=== PATIENT | female | born 2000 | race Caucasian/White ===

== ENCOUNTER 2022-03-23 23:00 | Inpatient (IN) ==
--- NOTE | 2022-03-23 23:13 | History & Physical Report ---
Date of Service March 23, 2022 Assessment & Plan (1) Prior miscarriage with , antepartum: Plan: Patient presented for evaluation of a labor she had her membranes stripped in the office by the provider in the office and states she was rodolfo every 3 minutes they were not overly intense and there was no bleeding but she came in to be checked her cervix is 1 cm and 50% at this time which is the same as it was in the office per documentation at this stage we will observe and monitor and recheck her in 2 hours History of Present Illness Primary Care Provider: Marlo Lund DO Allergies Allergy/AdvReac Type Severity Reaction Status Date / Time No Known Allergies Allergy Verified 03/23/22 23:17 Home Medications Medication Instructions Recorded Confirmed Type prenat.vits,teagan,eke-obtf-weevq 1 tab PO DAILY 08/13/21 03/23/22 History Patient History Medical History karen Varicella vaccination Family History Grandmother (Paternal) Breast cancer great Denies family history of Ovarian cancer Colorectal cancer Social History Smoking Status: Never smoker Tobacco Type: Cigarettes Second Hand Exposure: No; Hx Alcohol Use: No Hx Substance Use: No Preferred Language: Albanian Communication Ability: Effective Upholsterer Limousine And Hearse Required: No Beliefs That Will Affect Care: None marital status: Single Current Living Situation: Family and Significant Other Current Living Situation Comment: significant other; 2.5 year old daughter current occupational status: employed current occupation: [employer] Other Information That Helps Us Care for You: No Feels Safe at Home: Yes Safety Concerns: Feels Safe At This Time Assistive Devices: Glasses Supervising Physician Co-Signing Physician Notes Resident Physician Supervision Note: I interviewed and examined the patient. Discussed with Dr. Up and agree with findings and plan as documented in the note. Any exceptions or clarifications are listed here: [None] Documented By: Aida Clemente MD, FACOG Coding Level of Care Code None Diagnoses Prior miscarriage with , antepartum O09.299
[2022-03-24] MEDS ORDERED: OXYTOCIN 30 UNITS/500 ML BAG IV PRN (01:12)
[2022-03-24] MEDS ORDERED: LIDOCAINE 1% LOCAL 20 ML VIAL INFIL PRN (01:12)
[2022-03-24 01:40] LABS: Hematocrit (blood only) 29.6 % (34.1-44.9); Hemoglobin 9.3 g/dl (12.0-16.0); Mean Corpuscular Hemoglobin 23.8 pg (25.0-34.0); Mean Corpuscular Hgb Conc 31.4 g/dL (32.0-36.0); Mean Corpuscular Volume 75.9 fL (80.0-100.0); Mean Platelet Volume 10.5 fL (9.4-12.3); Platelet Count 299 K/uL (130-400); RDW Coefficient of Variation 14.8 % (11.5-14.5); RDW Standard Deviation 40.1 fL (36.4-46.3); White Blood Count 17.33 K/ul (4.8-10.8)
[2022-03-24] MEDS ORDERED: SODIUM CHLORIDE 0.9% INJ 10 ML VIAL ONE (02:08)
[2022-03-24] MEDS ORDERED: fentaNYL citrate 100 MCG/2 ML VIAL ONE (02:08)
[2022-03-24] MEDS ORDERED: ePHEDrine sulfate 50 MG/ML AMP ONE (02:08)
[2022-03-24] MEDS ORDERED: BUPIVACAINE 0.25% 30 ML VIAL ONE (02:09)
[2022-03-24] MEDS ORDERED: fentaNYL 2MCG/ML ROPIVACAINE 1.25MG/ML 100 ML BAG EPI ONE (02:09)
[2022-03-24] MEDS ORDERED: LIDOCAINE 2%/EPINEPHRINE 1:200,000 20 ML SDV ONE (02:09)
[2022-03-24] MEDS: LACTATED RINGER'S 1,000 ML IV PRN ×3 (02:10→09:55)
[2022-03-24] MEDS ORDERED: fentaNYL 2MCG/ML ROPIVACAINE 1.25MG/ML 100 ML BAG EPI PRN (02:41)
[2022-03-24] MEDS ORDERED: NALOXONE HCL 1 MG in SODIUM CHLORIDE 0.9% 1000ML 1,000 ML IV PRN (02:41)
[2022-03-24] MEDS ORDERED: NALBUPHINE HCL INJ 10 MG/ML AMP IV PRN (02:41)
[2022-03-24] MEDS ORDERED: NALOXONE HCL 0.4 MG/1 ML VIAL/CARP IV PRN (02:41)
[2022-03-24] MEDS ORDERED: diphenhydrAMINE 50 MG/ML VIAL IV PRN (02:41)
[2022-03-24] MEDS ORDERED: ONDANSETRON INJ 2 MG/ML 2 ML VIAL IV PRN (02:41)
[2022-03-24] MEDS ORDERED: ePHEDrine sulfate 50 MG/ML AMP IV PRN (02:41)
--- NOTE | 2022-03-24 02:43 | Anesthesiology Consultation ---
Date of Service March 24, 2022 Assessment & Plan Chart Review Chart Review: Patient NOT seen in Pre Admission Testing and Acceptable Risk for Labor Epidural Consults Requested none ASA ASA2 Proposed Anesthesia Anesthesia Type: Labor Epidural and CSE Risk / Benefits Reviewed With: PT / POA / Parent / Guardian, Accepts Plan and Informed Consent Obtained History Height/Weight Height: 5 ft 7 in Weight: 91.626 kg Allergies Allergy/AdvReac Type Severity Reaction Status Date / Time No Known Allergies Allergy Verified 03/23/22 23:17 Medications Home Medications Medication Instructions Recorded Confirmed Last Taken prenat.vits,teagan,zmr-pecp-kjiri 1 tab PO DAILY 08/13/21 03/23/22 03/22/22 21:00 Active Medications Generic Name Dose Route Start Last Admin Trade Name Freq PRN Reason Stop Dose Admin Lactated Ringer's 1,000 mls @ 125 mls/hr 03/24/22 01:12 03/24/22 02:10 Lr IV 03/26/22 01:11 999 mls/hr .Q8H PRN Administration L&D Protocol Protocol NPO Date Last Intake of Fluids: 03/24/22 Time Last Intake of Fluids: 01:00 Date Last Intake of Solids: 03/23/22 Time Last Intake of Solids: 18:00 Past Medical History Medical History karen Varicella vaccination Exercise / Class Metabolic Activity II 4-5 Yardwork/Stairs/Walk up hill Past Family History Family History Grandmother (Paternal) Breast cancer great Denies family history of Ovarian cancer Colorectal cancer Past Anesthesia History No Hx of Anesthesia Complications and No Family Hx of Anesthesia Complications History of PONV No Hx of PONV and No Hx of Motion Sickness Social History Smoking Status: Never smoker Hx Alcohol Use: No Hx Substance Use: No substance use type: does not use Review of Systems no chest pain or sob Physical Exam Vital Signs Last Vital Signs Temp 36.8 C 03/23/22 23:18 Pulse 90 03/24/22 02:41 Resp 18 03/23/22 23:18 BP 130/77 03/24/22 02:41 Pulse Ox 100 03/24/22 02:39 ENMT Mouth: no TMJ abnormality Thyromental Distance: > or= 3.5 Finger Breadths Mallampati Class: II Neck normal visual inspection Respiratory normal respiratory effort Auscultation: lungs clear to auscultation bilaterally Cardiovascular Rate/Rhythm: regular rate and regular rhythm Musculoskeletal Spine: normal cervical ROM Neurologic moves all extremities Psychiatric Orientation: alert and oriented x 3 Testing Laboratory Results 03/24/22 01:30
[2022-03-24] MEDS ORDERED: BENZOCAINE 20% AER SPR 82.5 GM CAN EXT PRN (11:07)
[2022-03-24] MEDS ORDERED: HYDROCORTISONE ACETATE 25 MG SUPP PR PRN (11:07)
[2022-03-24] MEDS ORDERED: ACETAMINOPHEN 325 MG TAB PO PRN (11:07)
[2022-03-24] MEDS ORDERED: oxyCODONE/ACETAMINOPHEN 5mg/325mg TAB PO PRN (11:07)
[2022-03-24] MEDS ORDERED: DIPHTHERIA/TETANUS/PERTUSSIS 0.5 ML SYR/VIAL IM ONE (11:07)
--- NOTE | 2022-03-24 11:30 | Anesthesia Procedure Note ---
Date of Service March 24, 2022 Anesthesia Post Epidural Note Vital Signs Vital Signs: Temp Pulse Resp BP Pulse Ox 36.7 C 87 18 127/70 100 03/24/22 10:45 03/24/22 11:14 03/24/22 11:15 03/24/22 11:14 03/24/22 10:40 Pain Intensity Abdomen: Pain Intensity: 0 Notes Mental Status: alert / awake / arousable and participated in evaluation Nausea / Vomiting: adequately controlled Pain: adequately controlled Airway Patency, RR, SpO2: stable & adequate BP & HR: stable & adequate Hydration State: stable & adequate Neuraxial Anesthesia: was administered and sensory block is resolving Anesthetic Complications: no major complications apparent and Pt Satisfied with anesthetic care Epidural: Removed without complications and With tip intact
[2022-03-24] MEDS: IBUPROFEN 600 MG TAB PO PRN (20:58)
[2022-03-24] MEDS: DOCUSATE SODIUM 100 MG CAP PO SCH (20:59)
[2022-03-25] MEDS: IBUPROFEN 600 MG TAB PO PRN ×2 (00:08→05:02)
--- NOTE | 2022-03-25 06:45 | Obstetrical Progress Note ---
Date of Service March 25, 2022 Assessment & Plan (1) Vaginal delivery: Recovering well, PPD#1 but over 24 hours from and would like d/c today. instructions reviewed, all questions answered. Subjective Ambulation: ambulating normally Voiding: no voiding problems Passing Gas:: Yes Diet Tolerance:: regular diet Lochia:: Small Feeding Type:: breast feeding Physical Exam Patient actively at time of this visit so exam was limited to avoid disturbing latch. Constitutional WD/WN, vitals as above Eyes PERRL, conjunctivae normal, anicteric sclerae Neck normal visual inspection Respiratory normal respiratory effort and able to speak in complete sentences; no respiratory distress and no labored breathing Cardiovascular Rate/Rhythm: regular rate and regular rhythm Extremities: no edema Chest (Breasts) Chest: normal inspection of chest Gastrointestinal (Abdomen) Inspection/Auscultation: abdomen normal to inspection Psychiatric A+Ox3, euthymic affect Results & Data ([facility]) Vital Signs (Past 12 Hours) Vital Signs Temp Pulse Resp BP Pulse Ox O2 Del Method 03/25/22 04:40 97.7 F 65 18 115/72 99 Room Air 03/25/22 00:30 97.5 F L 74 18 120/63 99 Room Air 03/24/22 19:35 97.5 F L 79 18 112/71 98 Room Air
[2022-03-25 06:52] LABS: Hematocrit (blood only) 26.6 % (34.1-44.9); Hemoglobin 8.5 g/dl (12.0-16.0); Mean Corpuscular Hemoglobin 24.4 pg (25.0-34.0); Mean Corpuscular Volume 76.4 fL (80.0-100.0); Mean Platelet Volume 10.4 fL (9.4-12.3); Platelet Count 259 K/uL (130-400); Red Blood Count 3.48 M/uL (3.93-5.22); White Blood Count 17.68 K/ul (4.8-10.8)
[2022-03-25] MEDS ORDERED: PRENATAL VITAMIN 1 TAB PO SCH (08:00)
[2022-03-25] MEDS: DOCUSATE SODIUM 100 MG CAP PO SCH (08:52)
--- NOTE | 2022-03-30 12:46 | Delivery Summary ---
Vaginal Delivery Summary Date of Service March 24, 2022 Vaginal Delivery Summary DIAGNOSES: 1. White intrauterine at term gestation. 2. Spontaneous onset of labor. 3. Group B Streptococcus Neg. PROCEDURE: Spontaneous vaginal delivery without laceration. SURGEON: Marilyn Cisneros MD. ARMATURE AND ROTOR WINDER: None. ESTIMATED BLOOD LOSS: 300 mL. COMPLICATIONS: None. PLACENTA: Spontaneous and intact with a 3-vessel cord. DISPOSITION: Stable to labor and delivery. DESCRIPTION: The patient pushed well and brought the head to in OA position. The 's head was allowed to deliver with contraction force and no further active pushing, with the perineum protected during this time. There was no nuchal cord. The shoulders and body delivered without any difficulty, and the infant was placed on the maternal abdomen. It was vigorous and moving all extremities, and making respiratory efforts. The cord was doubly clamped by the MD and then cut by the FOB. The placenta delivered spontaneously and was noted to be intact and with a 3VC. The cervix, vagina and perineum were examined and were found to be without defect requiring repair. The fundus was firm and lochia minimal immediately after delivery. [facility] Vaginal Delivery Charge Vaginal Delivery Codes: 96615 global code for the antepartum, delivery, and post-
== END 2022-03-25 13:15 | disposition home or self-care (01) | DRG 807 ==
LOC: OPB 23:00 → 4S1 23:01 → 4E2 03-24 13:21

== ENCOUNTER 2025-01-03 08:15 | Inpatient (IN) ==
[2025-01-03] MEDS ORDERED: OXYTOCIN 30 UNITS/NSS 30 UNITS/500 ML BAG IV PRN ×2 (08:17→16:33)
[2025-01-03] MEDS ORDERED: LIDOCAINE 1% LOCAL 20 ML VIAL INFIL PRN (08:17)
[2025-01-03 08:46] LABS: Hematocrit (blood only) 39.3 % (37.0-47.0); Hemoglobin 12.7 g/dl (12.0-16.0); Mean Corpuscular Hemoglobin 27.0 pg (25.0-34.0); Mean Corpuscular Volume 83.6 fL (80.0-100.0); Platelet Count 212 K/uL (130-400); RDW Standard Deviation 57.9 fL (36.4-46.3); Red Blood Count 4.70 M/uL (4.20-5.40); White Blood Count 9.41 K/ul (4.8-10.8)
[2025-01-03] MEDS: LACTATED RINGER'S 1,000 ML IV PRN (08:59)
--- NOTE | 2025-01-03 09:03 | History & Physical Report ---
Date of Service January 03, 2025 Assessment & Plan (1) 40 weeks gestation of : (2) Encounter for induction of labor: Plan Pitocin Arom when indicated Monitor tracing, category 1 Admission and Anticipated Discharge Date Admission Date: January 03, 2025 History of Present Illness Chief Complaint: IOL Primary Care Provider: Marlo Lund DO 24 yo at 40w2d admitted for IOL for postdates. Complications during include hypothyroid and anemia. She takes levothyroxine 75 mcg and prenatals. Reports she feels inconsistent contractions more than 10 min apart. Denies fluid loss, bloody show. Positive movement. She attends OB appointments regularly. Membranes sweeped yesterday in office. Denies MOODY, CP, SOB, N/V/D, LE pain. GBS neg, RH+, RI Allergies Allergy/AdvReac Type Severity Reaction Status Date / Time No Known Allergies Allergy Verified 01/02/25 09:45 Home Medications Medication Instructions Recorded Confirmed Type 21-iron fu-folic acid PO 05/26/24 01/02/25 History [ Complete] ferrous sulfate 325 mg (65 mg 325 mg PO DAILY 10/16/24 01/02/25 History iron) tablet,delayed release levothyroxine 75 mcg tablet 75 mcg PO DAILY #34 tabs 11/07/24 01/02/25 Rx Patient History Medical History (Updated 01/03/25 @ 09:30 by Zee Hernandez MD, FACOG) Miscarriage Anxiety Varicella vaccination Surgical History (Updated 05/26/24 @ 13:53 by Coral Matthews) Status post surgery karen removed Family History Grandmother (Paternal) Breast cancer Denies family history of Ovarian cancer Colorectal cancer Social History (Updated 05/26/24 @ 14:11 by Coral Matthews) Smoking Status: Former smoker Tobacco Type: Cigarettes Second Hand Exposure: No; Do You Dip or Chew Tobacco: No; Hx Alcohol Use: No Hx Substance Use: No Preferred Language: Persian Communication Ability: Effective Fruit Tester Required: No Beliefs That Will Affect Care: None marital status: Single marital status details: raquel Henry (26) [phone] Current Living Situation: Family and Significant Other Current Living Situation Comment: lives with fob, 2 children, dog, cat-pt to wear/goves current occupational status: employed current occupation: [employer] Feels Safe at Home: Yes Assistive Devices: Glasses OB History History : 4 Full term: 2 Premature: 0 Total Number of Induced Abortions: 0 Total Number of Spontaneous Abortions: 1 Ectopics: 0 Multiple births: 0 Number of Living Children: 2 Del. Date GA wks Lbr Lgth wt Sex Type del Anes Place Del Prov ? Comment 08/15/19 41 11 7-4 F Epidu ral Other Mattie No 05/21/21 Aborted-Spontaneous 03/24/22 40 8-7 M Epidural [facility] Dr. Amelia Guido JOB BOSS History Last menstrual period: Yes Menstrual reliability: definite Flow: normal Menstrual regularity: regular Monthly: Yes Age at menarche: 13 On control pills at conception: No Date of positive home test: 04/26/24 Menstrual history comments: cycles 28-30 days Details: last pap 01/19/[address] Monge Review of Systems All systems reviewed & are unremarkable except as noted in HPI & below Physical Exam Constitutional: WD/WN, vitals as above Respiratory: normal respiratory effort, lungs clear to auscultation Cardiovascular: RRR, no murmur, no edema Gastrointestinal (Abdomen): normal bowel sounds, soft, nontender, no hepatosplenomegaly +gravid Skin: no rashes, warm and dry Genitourinary: Manual OB Exam: + cervical dilation 2 cm, + cervical effacement (75%) and + station -2 EFW: 7-[address] Hernandez Results & Data Vital Signs (Past 12 Hours) Vital Signs Pulse BP 01/03/25 08:29 71 130/82 Laboratory Results OB Labs: Blood Type O Positive 06/05/24 Antibody Screen NEGATIVE 06/05/24 Hgb 8.9 g/dl (12.0-16.0) L 11/02/24 Hct 27.9 % (37.0-47.0) L 11/02/24 MCV 78.6 fL (80.0-100.0) L 11/02/24 Plt Count 249 K/uL (130-400) 11/02/24 Rubella IgG Antibody Immune (Immune) 06/05/24 RPR Nonreactive (Nonreactive) 08/19/21 Treponema pallidum Ab Negative (Negative) 10/12/24 Hep Bs Antigen Negative (Negative) 06/05/24 Hep Bs Antigen NON-REACTIVE (NON-REACTIVE) 08/19/21 Hepatitis C Antibody Negative (Negative) 06/05/24 Hepatitis C Ab (EIA) NON-REACTIVE (NON-REACTIVE) 08/19/21 HIV 1&2 Ab/P24 Ag 4thGn Negative (Negative) 06/05/24 HIV (1&2) Ag & Ab Conf NON-REACTIVE (NON-REACTIVE) 08/19/21 Glucose 1 Hr 50 gm 117 mg/dl (70-130) 10/12/24 Maternal Serum AFP 18.1 ng/mL 07/18/24 OB Optional Labs: Chlamydia trachomatis RNA Not Detected (NotDetected) 06/05/24 Neisseria gonorrhoeae RNA Not Detected (NotDetected) 06/05/24 Thyroid Stimulating Hormone (TSH) 0.861 uIU/mL (0.30-4.50) 10/11/24 Alpha Fetoprotein Triple Screen SEE NOTE 07/18/24 Monitoring External Monitor HR: 145 Variability: moderate Accelerations: present Decelerations: absent Contractions: absent Category 1 tracing Supervising Physician Co-Signing Physician Notes Resident Physician Supervision Note: I was present with Dr. Ely during the history and exam. I discussed the case with the resident and agree with the findings and plan as documented in the note. Any exceptions or clarifications are listed here: 24yo at 40+wks ega desires elective induction of labor. No significant issues, other than anemia and hypothyroidism. RH pos, RI. GBS neg. Abd soft gravid nt, fhts categ1. sve 2/75/-2 mid med, arom attempted, ? return of fluid. Will begin pitocin, labs ordered. if needed will attempt arom again. fhts categ 1. Documented By: Zee Hernandez MD, FACOG Resident Activity Tracking Resident Involvement: Resident Care Provided Care Provided: OB Delivery
[2025-01-03] MEDS: OXYTOCIN 30 UNITS/NSS 30 UNITS/500 ML BAG IV PRN (09:20)
[2025-01-03] MEDS ORDERED: NALOXONE HCL 1 MG in SODIUM CHLORIDE 0.9% 1,000 ML IV PRN (13:51)
[2025-01-03] MEDS ORDERED: ROPIVACAINE 0.5% PF 5 MG/ML 20 ML VIAL EPI PRN (13:51)
[2025-01-03] MEDS ORDERED: diphenhydrAMINE 50 MG/ML VIAL IV PRN (13:51)
[2025-01-03] MEDS ORDERED: ONDANSETRON INJ 2 MG/ML 2 ML VIAL IV PRN (13:51)
[2025-01-03] MEDS ORDERED: fentANYL 2 MCG/ML BUPIVacaine 0.125%-NSS 100ML BAG EPI PRN (13:51)
[2025-01-03] MEDS ORDERED: BUPIVACAINE 0.25% PF 30 ML VIAL EPI PRN (13:51)
[2025-01-03] MEDS ORDERED: NALOXONE HCL 0.4 MG/1 ML VIAL/CARP IV PRN (13:51)
[2025-01-03] MEDS ORDERED: SODIUM CHLORIDE 0.9% PF INJ 10 ML VIAL EPI PRN (13:51)
[2025-01-03] MEDS ORDERED: NALBUPHINE HCL INJ 10 MG/ML AMP IV PRN (13:51)
[2025-01-03] MEDS ORDERED: LIDOCAINE 2% MPF LOCAL 5 ML VIAL EPI PRN (13:51)
--- NOTE | 2025-01-03 13:53 | Anesthesiology Consultation ---
Date of Service January 03, 2025 Assessment & Plan (1) Encounter for pre-operative examination: Chart Review Chart Review: Patient NOT seen in Pre Admission Testing and Acceptable Risk for Labor Epidural Consults Requested none History Height/Weight Height: 5 ft 7 in Weight: 89.904 kg Allergies Allergy/AdvReac Type Severity Reaction Status Date / Time No Known Allergies Allergy Verified 01/02/25 09:45 Medications Home Medications Medication Instructions Recorded Confirmed Last Taken 21-iron fu-folic acid PO 05/26/24 01/02/25 Unknown [ Complete] ferrous sulfate 325 mg (65 mg 325 mg PO DAILY 10/16/24 01/02/25 Unknown iron) tablet,delayed release levothyroxine 75 mcg tablet 75 mcg PO DAILY #34 tabs 11/07/24 01/03/25 01/03/25 06:00 Active Medications Generic Name Dose Route Start Last Admin Trade Name Freq PRN Reason Stop Dose Admin Oxytocin 30 units in 500 mls @ 11 mls/hr 01/03/25 08:17 01/03/25 13:25 Pitocin 30 Units/Nss IV 01/05/25 08:16 0.66 units/hr .Q24H PRN 11 mls/hr Labor Induction/Augmentation Titration Protocol 0.66 UNITS/HR Lactated Ringer's 1,000 mls @ 125 mls/hr 01/03/25 08:17 01/03/25 14:01 Lr IV 01/05/25 08:16 999 mls/hr .Q8H PRN Administration L&D Protocol Protocol Past Medical History Medical History (Updated 01/03/25 @ 13:52 by Jose Parson MD) Encounter for pre-operative examination Miscarriage Anxiety Varicella vaccination Past Family History Family History Grandmother (Paternal) Breast cancer great Denies family history of Ovarian cancer Colorectal cancer Past Surgical History Surgical History Status post surgery karne removed Social History Smoking Status: Former smoker Do You Dip or Chew Tobacco: No Hx Alcohol Use: No Hx Substance Use: No substance use type: does not use Physical Exam Vital Signs Last Vital Signs Temp 37.1 C 01/03/25 09:55 Pulse 79 01/03/25 14:10 Resp 20 01/03/25 09:55 BP 127/86 01/03/25 14:10 Pulse Ox 100 01/03/25 14:07 Testing Laboratory Results 01/03/25 08:29
[2025-01-03] MEDS: BUPIVACAINE 0.25% PF 30 ML VIAL ONE (14:06)
[2025-01-03] MEDS: LIDOCAINE 2%/EPINEPHRINE 1:200,000 20 ML PF ONE (14:07)
[2025-01-03] MEDS: fentANYL 2 MCG/ML BUPIVacaine 0.125%-NSS 100ML BAG ONE (14:08)
[2025-01-03] MEDS ORDERED: DIPHTHER/TETAN/PERTUS Vaccine (Tdap, Adol/Adult) 0.5mL IM ONE (16:33)
[2025-01-03] MEDS ORDERED: HYDROCORTISONE ACETATE 25 MG SUPP PR PRN (16:33)
--- NOTE | 2025-01-03 16:36 | Delivery Summary ---
Vaginal Delivery Summary Date of Service January 03, 2025 Vaginal Delivery Summary and 2nd Degree LAC The patient dilated to complete and pushed to deliver a viable male infant Apgars 9 and 9 via over 2nd degree perineal laceration. Mouth and nose bulb suctioned at perineum. Shoulders and body delivered with ease. Infant was vigorous and crying at . Cord clamped at 30 seconds of life and infant to maternal abdomen where the cord was then doubly clamped and cut. Placenta delivered spontaneously and intact, three-vessel cord. Hemostasis achieved with dilute pitocin and uterine massage and drainage of the bladder for approximately 200 cc under sterile conditions. Cervix and sulci intact. QBL 166 cc. Laceration repaired in routine fashion with 3-0 vicryl. Mother and baby stable in recovery. [facility] – [place], [place] Vaginal Delivery Charge Delivery Type Details: and 2nd Degree LAC
[2025-01-03] MEDS: SODIUM CHLORIDE 0.9% PF INJ 10 ML VIAL ONE (17:10)
[2025-01-03] MEDS: LIDOCAINE 2%/EPINEPHRINE 1:200,000 20 ML PF EPI STA (17:11)
[2025-01-03] MEDS: SODIUM CHLORIDE 0.9% PF INJ 10 ML VIAL EPI STA (17:11)
[2025-01-03] MEDS: BUPIVACAINE 0.25% PF 30 ML VIAL EPI STA (17:11)
--- NOTE | 2025-01-03 18:16 | Anesthesia Procedure Note ---
Date of Service January 03, 2025 Anesthesia Post Epidural Note Vital Signs Vital Signs: Temp Pulse Resp BP Pulse Ox 37.2 C 65 22 115/65 100 01/03/25 14:25 01/03/25 18:06 01/03/25 14:25 01/03/25 18:06 01/03/25 16:17 Pain Intensity Bilateral Lower Abdomen: Pain Intensity: 0 Notes Mental Status: alert / awake / arousable and participated in evaluation Patient Amnestic to Procedure: No Nausea / Vomiting: adequately controlled Pain: adequately controlled Airway Patency, RR, SpO2: stable & adequate BP & HR: stable & adequate Hydration State: stable & adequate Neuraxial Anesthesia: was administered and sensory block is resolving Anesthetic Complications: no major complications apparent and Pt Satisfied with anesthetic care Epidural: Removed without complications and With tip intact
[2025-01-03] MEDS: DOCUSATE SODIUM 100 MG CAP PO SCH (20:51)
[2025-01-03] MEDS: BENZOCAINE 20% SPRY 85 APPLN/85 GM CAN EXT PRN (20:51)
[2025-01-04] MEDS: ACETAMINOPHEN 325 MG TAB PO PRN (04:49)
--- NOTE | 2025-01-04 06:06 | Obstetrical Progress Note ---
Date of Service <Arina Ely DO - Last Filed: 01/04/25 07:11> January 04, 2025 Assessment & Plan <Arina Ely DO - Last Filed: 01/04/25 07:11> (1) care following vaginal delivery: Plan 24 yo post- day 1 s/p . Feels well today. Vital signs stable Continue post- care Encourage ambulation and Pain controlled with ibuprofen Hgb stable Discharge home today, follow up with Dr. Hernandez in 6 weeks. <Zee Hernandez MD, FACOG - Last Filed: 01/04/25 07:16> (1) care following vaginal delivery: Subjective <Arina Ely DO - Last Filed: 01/04/25 07:11> 24 yo post- day 1 s/p . Ambulation: ambulating normally Voiding: no voiding problems Passing Gas:: Yes Passing Stool:: No Diet Tolerance:: regular diet Lochia:: Small Feeding Type:: breast feeding Current Pain Level: 2/10 Resting comfortably this AM in NAD. Denies MOODY, CP, SOB, N/V/D, LE pain/swelling. Review of Systems All systems reviewed & are unremarkable except as noted in HPI & below Physical Exam <Arina Ely DO - Last Filed: 01/04/25 07:11> General: patient resting comfortably, NAD, non-toxic in appearance, AA&O x 4, answers questions appropriately. Skin: warm, dry, intact HEENT: NC/AT, anicteric sclera, conjunctiva without injection, moist mucus membranes. Heart: +S1/S2, regular, no m/r/g Lungs: equal air entry bilaterally, no rales/rhonchi/wheezes Abd: +BS, soft, NT/ND, uterine fundus 1 FB below umbilicus Ext: warm, no clubbing/cyanosis or edema, Marisol's neg. Neuro: nonfocal, patient AA&O x 4, speech intact, no facial droop, moving all extremities on command. Results & Data <Arina Ely DO - Last Filed: 01/04/25 07:11> Vital Signs (Past 12 Hours) Vital Signs Temp Pulse Pulse Resp BP BP Pulse Ox 01/04/25 03:00 36.9 C 66 16 107/66 97 01/04/25 00:00 36.7 C 75 14 109/62 97 01/03/25 21:30 36.8 C 83 16 114/77 97 01/03/25 18:36 74 109/57 L 01/03/25 18:21 72 114/59 L 01/03/25 18:06 65 115/65 O2 Del Method 01/04/25 03:00 Room Air 01/04/25 00:00 Room Air 01/03/25 21:30 Room Air 01/03/25 18:36 01/03/25 18:21 01/03/25 18:06 Supervising Physician <Zee Hernandez MD, FACOG - Last Filed: 01/04/25 07:16> Co-Signing Physician Notes Resident Physician Supervision Note: I was present with Dr. Ely during the history and exam. I discussed the case with the resident and agree with the findings and plan as documented in the note. Any exceptions or clarifications are listed here: eating, voiding, ambulating, breast feeding. abd soft ff 2 down nt, ext nt calves. ppd #1 s/p , doing well. desire dc home, instructions reviewed. f/u 6 wk pp check. rh pos, ri. Documented By: Zee Hernandez MD, FACOG Resident Activity Tracking <Arina Ely DO - Last Filed: 01/04/25 07:11> Resident Involvement: Resident Care Provided Care Provided: OB Delivery
[2025-01-04 07:37] VITALS: TEMP 98.1
[2025-01-04] MEDS: IBUPROFEN 600 MG TAB PO PRN (07:46)
[2025-01-04] MEDS: PRENATAL VITAMIN 1 TAB PO SCH (07:47)
[2025-01-04 11:36] VITALS: BP 113/63; PULSE 64; RESP 16; O2SAT 93
== END 2025-01-04 16:50 | disposition home or self-care (01) | DRG 807 ==
LOC: 4S1 08:15 → 4E2 21:08